=== PATIENT | male | born 1965 | race American Indian/Alaskan Native ===

== ENCOUNTER 2021-12-30 09:27 | Outpatient (CLI) | payer OTHER ==
--- NOTE | 2021-12-30 10:39 | XRay Report ---
Cervical spine 3 views INDICATION: Neck pain IMPRESSION: Moderate multilevel discogenic and uncovertebral arthropathy most significantly at C4-C5 and C5-C6. Signer Name: Malik Prieto MD Signed: 12/30/2021 10:35 AM Workstation Name: [id number]
--- NOTE | 2021-12-30 10:40 | XRay Report ---
Lumbar spine 3 views INDICATION: Low back pain IMPRESSION: No fracture or subluxation of the lumbar spine is identified. Mild multilevel discogenic and facet arthropathy vertically at L5-S1. Minimal neural foraminal narrowing identified at L5-S1. Signer Name: Malik Pireto MD Signed: 12/30/2021 10:35 AM Workstation Name: [id number]
--- NOTE | 2021-12-30 10:40 | XRay Report ---
Bilateral hips-3 total views INDICATION: BILATERAL HIP PAIN. COMPARISON: None available. IMPRESSION: No acute osseous abnormality. Normal alignment. Mild degenerative arthrosis in both hip s. Soft tissues are unremarkable. Signer Name: Evangelist Gold MD Signed: 12/30/2021 10:35 AM Workstation Name: [id number]
== END 2021-12-30 09:28 | disposition home or self-care (01) ==
LOC: XRAY 09:27
PROVIDERS: ATTEND Internal Medicine
DX: Z02.71 Encounter for disability determination (principal); M16.0 Bilateral primary osteoarthritis of hip; M47.817 Spondylosis without myelopathy or radiculopathy, lumbosacral region; M47.812 Spondylosis without myelopathy or radiculopathy, cervical region
CPT/HCPCS: 72040; 72100; 73521